=== PATIENT | male | born 1960 | race Caucasian/White ===

== ENCOUNTER 2024-03-18 16:46 | Emergency (ER) | payer BC, SELFPAY ==
[2024-03-18 16:53] VITALS: BP 162/94
--- NOTE | 2024-03-18 17:56 | ED.GENMED ---
History of Present Illness
<Lucia Caba PA-C - Last Filed: 03/18/24 20:14>
General
Chief Complaint: Head Injury
Source: patient
Exam Limitations: none
Time Seen by Provider: 03/18/24 17:33
Nursing documentation reviewed up to this point in time: agreed with
Travel History
Have you had any contact with someone who has COVID-19?: No
Do you have any symptoms of coronavirus? Fever > 100 degrees, chills, cough, shortness of breath, sore throat, loss of taste or smell, muscle aches, or headache?: No
History of Present Illness
History of Present Illness:
Patient is a 63-year-old male presenting for evaluation of head injury. Patient states that he was intoxicated on Monday night when he returned from hanging out with friends. He does not remember these events but his friends told him that he was
walking in the house when he fell backwards striking the back of his head on pavement. His friends report assisted him up and took him to the house. At that point he does not remember anything other than waking up in the morning. He noticed to
large bumps on the back of his head in 2 separate locations. He is concerned that he may fall and for a second time. He reports some lingering dizziness and mild headache over the past few days. He also notes some difficulty concentrating today
while at work. Patient denies any vision changes, nausea/vomiting, neck pain, or back pain. Patient states that he has been walking without difficulty since a fall.
Patient denies sustaining any other injuries during fall.
Patient does not take any blood thinners.
Past History
<Lucia Caba PA-C - Last Filed: 03/18/24 20:14>
Past History
ED Past Medical History: Psychiatric (anxiety, ADHD) and Other (cervical/ulnar radiculopathy)
ED Past Surgical History: Orthopedic (cervical fusion)
Social History
Tobacco: Non-smoker
Personal:
Living: with family
Employment: Employed
Review of Systems
<Lucia aCba PA-C - Last Filed: 03/18/24 20:14>
Review of Systems
Allergies reviewed?: Yes
All Other Systems: ROS reviewed and negative except as documented in HPI and ROS
Phy Exam
<Lucia Caba PA-C - Last Filed: 03/18/24 20:14>
Physical Exam
Physical Exam:
Vitals: Patient's vital signs are stable. Afebrile
General: Patient is well appearing, no acute distress
Skin: Warm and dry, no rashes or lesions
Head: Normocephalic. 2 small contusions noted to left parietal occipital scalp. No active bleeding. No obvious indentation.
Eyes: Sclera nonicteric. EOMs intact. No nystagmus. Pupils equal round react light bilaterally.
Throat: Protecting airway
Neck: Normal ROM, no cervical spine tenderness, no meningismus. Trachea midline
Cardiac: Regular rate and rhythm, no murmurs.
Pulm: Normal respiratory effort, no wheezes, rales, rhonchi heard on exam.
Abdomen: No abdominal tenderness.
Extremities: No evidence of cyanosis or edema. Good distal pulses
Neuro: AAOx3. CN II-XII intact. No focal neurologic deficits. Normal finger-nose. Strength 5 out of 5 in upper and lower extremities. Sensation fully intact
Psychiatric: Normal affect.
Course
<Lucia Caba PA-C - Last Filed: 03/18/24 20:14>
Orders/Labs/Results
Orders:
Orders
03/18/24 17:54
Acetaminophen [Tylenol] 650 mg PO NOW STA
03/18/24 18:00
CT Head W/o Iv Contrast Urgent
Comment:
Reason For Exam: fall 2 days ago with posterior head strike
Vital Signs
Initial and Last Documented VS:
Initial Vital Signs
Temp Pulse Resp BP Pulse Ox
98.2 F 60 18 162/94 96
03/18/24 16:53 03/18/24 16:53 03/18/24 16:53 03/18/24 16:53 03/18/24 16:53
Last Documented Vital Signs
Temp Pulse Resp BP Pulse Ox
98.2 F 60 18 162/94 96
03/18/24 16:53 03/18/24 16:53 03/18/24 16:53 03/18/24 16:53 03/18/24 16:53
<Silviano Fraser DO - Last Filed: 03/18/24 19:31>
Orders/Labs/Results
Orders:
Orders
03/18/24 17:54
Acetaminophen [Tylenol] 650 mg PO NOW STA
03/18/24 18:00
CT Head W/o Iv Contrast Urgent
Comment:
Reason For Exam: fall 2 days ago with posterior head strike
Vital Signs
Initial and Last Documented VS:
Initial Vital Signs
Temp Pulse Resp BP Pulse Ox
98.2 F 60 18 162/94 96
03/18/24 16:53 03/18/24 16:53 03/18/24 16:53 03/18/24 16:53 03/18/24 16:53
Last Documented Vital Signs
Temp Pulse Resp BP Pulse Ox
98.2 F 60 18 162/94 96
03/18/24 16:53 03/18/24 16:53 03/18/24 16:53 03/18/24 16:53 03/18/24 16:53
<Lucia Caba PA-C - Last Filed: 03/18/24 20:14>
MDM/Problems Addressed
Differential Diagnosis Includes:
Not limited to: Contusion, concussion, doubt intraparenchymal bleed
MDM/Problems Addressed:
63-year-old male presenting to the emergency department 2 days following unwitnessed head strike due to intoxication. Patient reports lingering dizziness, difficulties concentrating, mild headache. Vital signs are stable. Exam as above. Patient
well-appearing, in no apparent distress. He is alert and oriented with no focal neurologic deficits on exam. No midline spinal tenderness. He does have 2 contusions noted on the posterior aspect of his scalp. Given history of unwitnessed falls
and associated intoxication�will check head CT. Tylenol for pain. Patient declines any resources for alcohol dependence at this time.
Head CT shows no evidence of acute intracranial abnormality. Suspect mild concussion. Patient stable for discharge with return precautions, supportive care. Patient will follow-up with primary care provider. Patient comfortable with plan.
Patient ambulating steadily without difficulty upon exiting emergency department
Chronic conditions affecting care:
N/A
Acute Exacerbation and/or Progression of Chronic Illness:
N/A
<Lucia Caba PA-C - Last Filed: 03/18/24 20:14>
*Radiology
Radiology exam reviewed: preliminary read by ED provider and radiology read reviewed
*Pulse Oximetry
Patient hypoxic: no
*EKG
Interpreted by ED Provider?: NA
*Microbiology Teacher Interpretation
Rate: Microbiology Teacher- N/A
*Critical Care Note
Total Time (30-74mins, 75-104mins- exclusive of procedures): Not Applicable
ED Attending Note
<Lucia Caba PA-C - Last Filed: 03/18/24 20:14>
-
Portions of this chart may have been created with voice recognition software.� Occasional wrong word or��sound alike� substitutions may have occurred due to the inherent limitations of voice recognition software.
<Silviano Fraser, - Last Filed: 03/18/24 19:31>
ED Attending Note
Patient seen and examined by attending physician: Yes
I performed a history and physical exam of patient and discussed management with resident, I reviewed resident's note and agree with documented findings and plan of care.: Yes
ED Attending Note:
I have reviewed and agree with history and treatment plan by Lucia Caba. My exam revealed nontoxic well-appearing 63-year-old male with contusion to left parieto-occipital region, no cervical tenderness. Patient ambulates without difficulty.
No neurologic deficits. No other injuries noted. Stable for discharge. Normal head CT.
Discharge Plan
Departure
Patient Disposition: Home (Routine Discharge)
Date of Disposition: 03/18/24
Time of Disposition: 19:19
Patient with high blood pressure during this ER visit?: Yes
Condition: Good
Covid-19: Not Applicable
Discharge Problem:
Head injury
Instructions: Concussion, Adult (DC), Head Injury in Adults (DC)
Prescriptions:
No Action
duloxetine 60 MG capsule,delayed release(DR/EC)
120 mg PO DAILY
Patient Comments:
patient takes 2 tablets daily,he thinks they are 60 mg tablets
levofloxacin 500 MG tablet
500 mg PO DAILY Qty: 3 0RF
hydrocodone-acetaminophen 1 TABLET tablet
1 tab PO Q4HPRN PRN (Reason: severe pain) Qty: 10 0RF
prednisone 20 MG tablet
40 mg PO DAILY Qty: 8 0RF
prednisone 10 MG tablet
10 mg PO .TAPER Qty: 45 0RF
Rx Instructions:
Take 50mg daily x3days, 40mg daily x3days,
30mg daily x3days, 20mg daily x3days,
10mg daily x3days
oxycodone-acetaminophen 5 MG/325 MG tablet
1 tab PO Q4HPRN PRN (Reason: pain) Qty: 12 0RF
cephalexin 500 MG capsule
500 mg PO BID Qty: 14 0RF
indomethacin 50 MG capsule
50 mg PO TID Qty: 15 0RF
Referrals:
UNKNOWN - PT DOES,NOT KNOW [Unknown Provider] -
Activity Restrictions/Additional Instructions:
RETURN TO THE EMERGENCY DEPARTMENT WITH ANY SEVERE HEADACHE OR NECK PAIN, INTRACTABLE NAUSEA/VOMITING, PERSISTENT DIZZINESS, VISUAL CHANGES, CONFUSION, WORSENING IN CURRENT SYMPTOMS, OR ANY OTHER CONCERNS
-You should continue to take Tylenol and/or Motrin as needed for discomfort. You can apply ice. You should take it easy over the next few days and get plenty of rest.
-You should follow-up with your primary care doctor within a week to ensure that symptoms are improving/for further management.
Interventions
Interventions:
*Risk Screen - Suicide Last Done: 03/18/24 16:56
*General Assessment Last Done: 03/18/24 16:56
*Neglect/Abuse Screening Last Done: 03/18/24 16:56
ED- Fall Risk Assessment Last Done: 03/18/24 19:34
*ED COVID-19 Vaccine History Last Done: 03/18/24 19:34
*Nursing Disposition Last Done: 03/18/24 19:34
ED-Musculoskeletal Assessment Last Done: 03/18/24 19:18
ED- Neurological Assessment Last Done: 03/18/24 19:18
ED-Skin Assessment Last Done: 03/18/24 19:18
Discharge Date and Time
Discharge Date/Time: 03/18/24 19:34
Print Language: AZERI
[2024-03-18] MEDS: TYLENOL 650 MG PO (18:05)
== END 2024-03-18 19:34 | disposition home or self-care (01) ==
LOC: EMR 16:46
PROVIDERS: EMERGENCY PHYSICIAN Emergency Medicine; FAMILY PHYSICIAN Family Medicine
DX: S09.90XA Unspecified injury of head, initial encounter (principal); W19.XXXA Unspecified fall, initial encounter; Y93.01 Activity, walking, marching and hiking
CPT/HCPCS: 99284; 70450

== ENCOUNTER 2024-10-22 06:23 | Day surgery (SDC) | payer BC, SELFPAY | END 2024-10-22 12:01 | disposition home or self-care (01) | LOC: GI 06:23 | PROVIDERS: ATTENDING PHYSICIAN Surgery | DX: Z12.11 Encounter for screening for malignant neoplasm of colon (principal); D12.3 Benign neoplasm of transverse colon; K64.8 Other hemorrhoids; K64.4 Residual hemorrhoidal skin tags; K57.30 Diverticulosis of large intestine without perforation or abscess without bleeding; Z86.0100 Personal history of colon polyps, unspecified | CPT/HCPCS: 45380; 88305 ==